=== PATIENT | female | born 1930 | race Caucasian/White ===

== ENCOUNTER → 2016-09-28 | Outpatient (CLI) | payer MEDICARE ==
--- NOTE | 2016-09-30 09:25 | MM ---
Reason for exam: screening (asymptomatic). Last mammogram was performed 1 year and 7 months ago. History: Patient is postmenopausal. Family history of premenopausal breast cancer in maternal aunt at age 50 and breast cancer in daughter at age 52. Physical Findings: A clinical breast exam by your physician is recommended on an annual basis and results should be correlated with mammographic findings. MG 3D Screening Mammo W/Cad Bilateral CC and MLO view(s) were taken. Prior study comparison: February 25, 2015, bilateral MG screening mammo w CAD. February 06, 2014, bilateral MG screening mammo w CAD. The breast tissue is extremely dense which could obscure a lesion on mammography. No significant changes when compared with prior studies. ASSESSMENT: Benign, BI-RAD 2 RECOMMENDATION: Routine screening mammogram of both breasts in 1 year.
== END | disposition home or self-care (01) ==
LOC: RADMAMWWP 11:08
PROVIDERS: ATTEND Internal Medicine Geriatric Medicine
DX: Z12.31 Encounter for screening mammogram for malignant neoplasm of breast (principal)
CPT/HCPCS: 77063; G0202

== ENCOUNTER → 2019-01-30 | Outpatient (CLI) | payer MEDICARE ==
--- NOTE | 2019-01-30 16:55 | CT ---
EXAMINATION TYPE: CT soft tissue neck w con DATE OF EXAM: 01/30/2019 COMPARISON: HISTORY: voice hoarseness. CT DLP: 483 mGycm CONTRAST: Patient injected with 100 mL of Isovue 300. TECHNIQUE: Axial images at 3 mm thick sections. Reconstructed images in the coronal plane and sagitt al plane are reviewed. FINDINGS: Limited CT sections are obtained the lung apices. There is some mosaic pattern through the upper lung astudillo could be related to some mild edema. CT neck: The torus tubarius and fossa of Rosenmuller are normal. Wallpaper Scraper spaces are normal. Para nasal sinuses and mastoid air cells are clear. Parotid glands appear normal and symmetrical. Submandibular glands, are normal. Parapharyngeal spac es are normal. No suspicious adenopathy is evident. The hypopharynx appears within normal limits. Vocal cord level appear symmetrical. Thyroid as visualized is normal. Degenerative changes are through the cervical spine. IMPRESSIONS: 1. No suspicious acute changes CT neck. 2. Vocal cords as visualized appear symmetrical on this exam. 3. Some mild edema may be within the lung astudillo.
== END | disposition home or self-care (01) ==
LOC: RADCTMAIN 13:44
PROVIDERS: ATTEND Student in an Organized Health Care Education/Training Program
DX: J38.00 Paralysis of vocal cords and larynx, unspecified (principal)
CPT/HCPCS: 70491; Q9967

== ENCOUNTER 2020-06-18 19:09 | Inpatient (IN) | payer MEDICARE ==
[2020-06-18] MEDS ORDERED: IBUPROFEN 600 MG TAB PO STA (19:57)
[2020-06-18 20:19] LABS: Basophils % (A) 1 %; Eosinophils # (A) 0.1 k/uL (0-0.7); Eosinophils % (A) 1 %; HCT 36.4 % (34.0-46.0); HGB 12.2 gm/dL (11.4-16.0); Lymphocytes # (A) 0.3 k/uL (1.0-4.8); Lymphocytes % (A) 7 %; MCH 31.2 pg (25.0-35.0); MCHC 33.7 g/dL (31.0-37.0); MCV 92.7 fL (80.0-100.0); Mean Platelet Volume 7.4; Monocytes # (A) 0.2 k/uL (0-1.0); Monocytes % (A) 4 %; Neutrophils # (A) 3.9 k/uL (1.3-7.7); Neutrophils % (A) 84 %; Platelet Count 156 k/uL (150-450); RBC 3.92 m/uL (3.80-5.40); RDW 13.1 % (11.5-15.5); WBC 4.7 k/uL (3.8-10.6)
[2020-06-18 20:27] LABS: Albumin 4.2 g/dL (3.5-5.0); Calcium 9.7 mg/dL (8.4-10.2); Potassium 5.1 mmol/L (3.5-5.1); Total Bilirubin 0.5 mg/dL (0.2-1.3); Total Protein 6.8 g/dL (6.3-8.2)
--- NOTE | 2020-06-18 20:39 | XR ---
EXAMINATION TYPE: XR chest 2V DATE OF EXAM: 06/18/2020 COMPARISON: NONE HISTORY: Shortness of breath and fever. TECHNIQUE: Frontal and lateral views of the chest are obtained. FINDINGS: There is chronic parenchymal changes bilaterally without suspicious focal air space opacit y, pleural effusion, or pneumothorax seen. The cardiac silhouette size is enlarged. The osseous st ructures are demineralized. Dextroconvex scoliosis centered mid to lower thoracic spine. Metallic catrachito dware from total right shoulder arthroplasty noted IMPRESSION: Chronic changes and cardiomegaly without acute pulmonary process.
--- NOTE | 2020-06-18 20:48 | ED ---
SOB HPI - General Chief Complaint: Shortness of Breath Stated Complaint: SOB, fever Time Seen by Provider: 06/18/20 19:15 Source: patient Mode of arrival: ambulatory Limitations: no limitations - History of Present Illness Initial Comments: Patient is an 89-year-old female past history of A. fib, hypertension who presents to the emergency department with reported shortness of breath. Her daughter at bedside helps provide history. She states that her mother is currently on Bactrim for a UTI which has been persistent. She has been following up with Dr. Dave. Over the past several days the patient has been complaining of shortness of breath. She has had increased lower extremity edema. Normally takes 40 mg of Lasix every other day. Daughter states she's been taking it every day because of her swelling. She admits to a mild nonproductive cough. No sick contacts with similar symptoms. Denies any chest pain. Does take Eliquis for her A. fib. Denies missing any doses. No history of DVT or PE. No abdominal pain. No changes in her bowel or bladder habits. No other alleviating, precipitating or modifying factors - Related Data Home Medications Medication Instructions Recorded Confirmed Levothyroxine Sodium [Synthroid] 75 mcg PO DAILY 04/29/14 06/18/20 amLODIPine/VALSARTAN [Exforge 1 tab PO DAILY 04/29/14 06/18/20 5-320 mg Tablet] ALPRAZolam [Xanax] 0.25 mg PO BID PRN 06/18/20 06/18/20 Albuterol Sulfate [Ventolin HFA] 2 puff INHALATION RT-Q4H PRN 06/18/20 06/18/20 Apixaban [Eliquis] 2.5 mg PO BID 06/18/20 06/18/20 Furosemide [Lasix] 40 mg PO DAILY 06/18/20 06/18/20 L.acidoph,Paracasei, B.lactis 2 cap PO DAILY 06/18/20 06/18/20 [Probiotic] Meloxicam [Mobic] 7.5 mg PO BID 06/18/20 06/18/20 Metoprolol Tartrate [Lopressor] 25 mg PO BID 06/18/20 06/18/20 Multivitamins, Thera [Multivitamin 1 tab PO DAILY 06/18/20 06/18/20 (formulary)] Potassium Chloride ER [K-Dur 10] 10 meq PO DAILY 06/18/20 06/18/20 Sulfamethox-Tmp 800-160Mg [Bactrim 1 tab PO DAILY 06/18/20 06/18/20 DS 800-160 mg] Allergies Allergy/AdvReac Type Severity Reaction Status Date / Time Penicillins Allergy Rash/Hives Verified 06/18/20 23:01 Review of Systems ROS Statement: Those systems with pertinent positive or pertinent negative responses have been documented in the HPI. ROS Other: All systems not noted in ROS Statement are negative. Past Medical History Past Medical History: Hypertension, Osteoarthritis (OA), Thyroid Disorder History of Any Multi-Drug Resistant Organisms: None Reported, MRSA Date of last positivie culture/infection: 2000 MDRO Source:: knee Past Surgical History: Back Surgery, Hysterectomy, Joint Replacement Additional Past Surgical History / Comment(s): knee and hip replacements [facility] Past Psychological History: No Psychological Hx Reported Smoking Status: Never smoker Past Alcohol Use History: None Reported Past Drug Use History: None Reported General Exam Limitations: no limitations General appearance: alert, in no apparent distress Head exam: Present: atraumatic, normocephalic, normal inspection Eye exam: Present: normal appearance, PERRL, EOMI. Absent: scleral icterus, conjunctival injection, periorbital swelling ENT exam: Present: normal exam, mucous membranes moist Neck exam: Present: normal inspection. Absent: tenderness, meningismus, lymphadenopathy Respiratory exam: Present: normal lung sounds bilaterally. Absent: respiratory distress, wheezes, rales, rhonchi, stridor Cardiovascular Exam: Present: regular rate, normal rhythm, normal heart sounds. Absent: systolic murmur, diastolic murmur, rubs, gallop, clicks GI/Abdominal exam: Present: soft, normal bowel sounds. Absent: distended, tenderness, guarding, rebound, rigid Extremities exam: Present: normal inspection, full ROM, normal capillary refill. Absent: tenderness, pedal edema, joint swelling, calf tenderness Back exam: Present: normal inspection Neurological exam: Present: alert, oriented X3, CN II-XII intact Psychiatric exam: Present: normal affect, normal mood Skin exam: Present: warm, dry, intact, normal color. Absent: rash Course Vital Signs 10/06/20 10/06/20 10/06/20 19:11 19:27 19:30 Temperature 101.5 F H Pulse Rate 108 H 118 H Pulse Rate [ Pulse Oximetery ] Respiratory 18 18 Rate Blood Pressure 102/54 132/80 Blood Pressure [Left Arm Sitting] O2 Sat by Pulse 94 L 90 L 91 L Oximetry 06/18/20 06/18/20 06/18/20 20:00 20:23 20:30 Temperature Pulse Rate 96 116 H 100 Pulse Rate [ Pulse Oximetery ] Respiratory 18 18 Rate Blood Pressure 113/91 128/66 Blood Pressure [Left Arm Sitting] O2 Sat by Pulse 91 L 96 Oximetry 06/18/20 06/18/20 06/18/20 20:40 21:00 21:37 Temperature Pulse Rate 109 H 95 Pulse Rate [ Pulse Oximetery ] Respiratory 19 Rate Blood Pressure 128/66 Blood Pressure [Left Arm Sitting] O2 Sat by Pulse 96 95 Oximetry 06/18/20 06/18/20 21:59 22:51 Temperature 98.2 F 98.6 F Pulse Rate Pulse Rate [ 92 Pulse Oximetery ] Respiratory 18 Rate Blood Pressure Blood Pressure 119/72 [Left Arm Sitting] O2 Sat by Pulse 96 Oximetry Medical Decision Making - Medical Decision Making Upon arrival the patient is placed into room 25. A thorough history and physical exam was performed. She is saturating 94% on room air. She has a heart rate of 125. Temp is 101.5. I did give her dose of Motrin for fever control. 12-lead EKG was performed which demonstrates A. fib with a rapid ventricular rate. Heart races were conducted. Chest x-rays performed. Sodium 129. Creatinine 1.4. BNP is 6660. Urinalysis shows large leukocyte esterase with 51 white blood cells and rare mucous. The patient is reevaluated and her heart rate is markedly improved. I discussed the diagnosis, differential and treatment options. It recommend hospital admission for failed outpatient treatment of UTI for which the patient did agree to. She was originally started on Zosyn as Dr. Dave reported that this was one of the antibiotics that she was sensitive to. Zosyn was started however daughter does mention that the patient has a penicillin ALLERGY. This was not previously mentioned. This antibiotic is stopped and the patient was switched to meropenem as Dr. Dave reported that her urine was also sensitive to this antibiotic. Medications are ordered. Patient is currently awaiting a bed on the floor - Lab Data Result diagrams: 06/19/20 02:21 06/19/20 02:21 Lab Results 06/18/20 06/18/20 06/18/20 Range/Units 19:52 19:52 19:52 WBC 4.7 (3.8-10.6) k/uL RBC 3.92 (3.80-5.40) m/uL Hgb 12.2 (11.4-16.0) gm/dL Hct 36.4 (34.0-46.0) % MCV 92.7 (80.0-100.0) fL MCH 31.2 (25.0-35.0) pg MCHC 33.7 (31.0-37.0) g/dL RDW 13.1 (11.5-15.5) % Plt Count 156 (150-450) k/uL Neutrophils % 84 % Lymphocytes % 7 % Monocytes % 4 % Eosinophils % 1 % Basophils % 1 % Neutrophils # 3.9 (1.3-7.7) k/uL Lymphocytes # 0.3 L (1.0-4.8) k/uL Monocytes # 0.2 (0-1.0) k/uL Eosinophils # 0.1 (0-0.7) k/uL Basophils # 0.0 (0-0.2) k/uL PT 11.0 (9.0-12.0) sec INR 1.1 (<1.2) APTT 27.9 (22.0-30.0) sec Sodium 129 L (137-145) mmol/L Potassium 5.1 (3.5-5.1) mmol/L Chloride 96 L (98-107) mmol/L Carbon Dioxide 25 (22-30) mmol/L Anion Gap 8 mmol/L BUN 24 H (7-17) mg/dL Creatinine 1.41 H (0.52-1.04) mg/dL Est GFR (CKD-EPI)AfAm 38 (>60 ml/min/1.73 sqM) Est GFR (CKD-EPI)NonAf 33 (>60 ml/min/1.73 sqM) Glucose 117 H (74-99) mg/dL Plasma Lactic Acid Bg (0.7-2.0) mmol/L Calcium 9.7 (8.4-10.2) mg/dL Total Bilirubin 0.5 (0.2-1.3) mg/dL AST 63 H (14-36) U/L ALT 34 (4-34) U/L Alkaline Phosphatase 111 (38-126) U/L Troponin I (0.000-0.034) ng/mL NT-Pro-B Natriuret Pep pg/mL Total Protein 6.8 (6.3-8.2) g/dL Albumin 4.2 (3.5-5.0) g/dL Urine Color Urine Appearance (Clear) Urine pH (5.0-8.0) Ur Specific [place] (1.001-1.035) Urine Protein (Negative) Urine Glucose (UA) (Negative) Urine Ketones (Negative) Urine Blood (Negative) Urine Nitrite (Negative) Urine Bilirubin (Negative) Urine Urobilinogen (<2.0) mg/dL Ur Leukocyte Esterase (Negative) Urine RBC (0-5) /hpf Urine WBC (0-5) /hpf Ur Squamous Epith Cells (0-4) /hpf Hyaline Casts (0-2) /lpf Urine Mucus (None) /hpf 06/18/20 06/18/20 06/18/20 Range/Units 19:52 19:52 19:52 WBC (3.8-10.6) k/uL RBC (3.80-5.40) m/uL Hgb (11.4-16.0) gm/dL Hct (34.0-46.0) % MCV (80.0-100.0) fL MCH (25.0-35.0) pg MCHC (31.0-37.0) g/dL RDW (11.5-15.5) % Plt Count (150-450) k/uL Neutrophils % % Lymphocytes % % Monocytes % % Eosinophils % % Basophils % % Neutrophils # (1.3-7.7) k/uL Lymphocytes # (1.0-4.8) k/uL Monocytes # (0-1.0) k/uL Eosinophils # (0-0.7) k/uL Basophils # (0-0.2) k/uL PT (9.0-12.0) sec INR (<1.2) APTT (22.0-30.0) sec Sodium (137-145) mmol/L Potassium (3.5-5.1) mmol/L Chloride (98-107) mmol/L Carbon Dioxide (22-30) mmol/L Anion Gap mmol/L BUN (7-17) mg/dL Creatinine (0.52-1.04) mg/dL Est GFR (CKD-EPI)AfAm (>60 ml/min/1.73 sqM) Est GFR (CKD-EPI)NonAf (>60 ml/min/1.73 sqM) Glucose (74-99) mg/dL Plasma Lactic Acid Bg 0.9 (0.7-2.0) mmol/L Calcium (8.4-10.2) mg/dL Total Bilirubin (0.2-1.3) mg/dL AST (14-36) U/L ALT (4-34) U/L Alkaline Phosphatase (38-126) U/L Troponin I <0.012 (0.000-0.034) ng/mL NT-Pro-B Natriuret Pep 6660 pg/mL Total Protein (6.3-8.2) g/dL Albumin (3.5-5.0) g/dL Urine Color Urine Appearance (Clear) Urine pH (5.0-8.0) Ur Specific [place] (1.001-1.035) Urine Protein (Negative) Urine Glucose (UA) (Negative) Urine Ketones (Negative) Urine Blood (Negative) Urine Nitrite (Negative) Urine Bilirubin (Negative) Urine Urobilinogen (<2.0) mg/dL Ur Leukocyte Esterase (Negative) Urine RBC (0-5) /hpf Urine WBC (0-5) /hpf Ur Squamous Epith Cells (0-4) /hpf Hyaline Casts (0-2) /lpf Urine Mucus (None) /hpf 06/18/20 Range/Units 20:37 WBC (3.8-10.6) k/uL RBC (3.80-5.40) m/uL Hgb (11.4-16.0) gm/dL Hct (34.0-46.0) % MCV (80.0-100.0) fL MCH (25.0-35.0) pg MCHC (31.0-37.0) g/dL RDW (11.5-15.5) % Plt Count (150-450) k/uL Neutrophils % % Lymphocytes % % Monocytes % % Eosinophils % % Basophils % % Neutrophils # (1.3-7.7) k/uL Lymphocytes # (1.0-4.8) k/uL Monocytes # (0-1.0) k/uL Eosinophils # (0-0.7) k/uL Basophils # (0-0.2) k/uL PT (9.0-12.0) sec INR (<1.2) APTT (22.0-30.0) sec Sodium (137-145) mmol/L Potassium (3.5-5.1) mmol/L Chloride (98-107) mmol/L Carbon Dioxide (22-30) mmol/L Anion Gap mmol/L BUN (7-17) mg/dL Creatinine (0.52-1.04) mg/dL Est GFR (CKD-EPI)AfAm (>60 ml/min/1.73 sqM) Est GFR (CKD-EPI)NonAf (>60 ml/min/1.73 sqM) Glucose (74-99) mg/dL Plasma Lactic Acid Bg (0.7-2.0) mmol/L Calcium (8.4-10.2) mg/dL Total Bilirubin (0.2-1.3) mg/dL AST (14-36) U/L ALT (4-34) U/L Alkaline Phosphatase (38-126) U/L Troponin I (0.000-0.034) ng/mL NT-Pro-B Natriuret Pep pg/mL Total Protein (6.3-8.2) g/dL Albumin (3.5-5.0) g/dL Urine Color Light Yellow Urine Appearance Clear (Clear) Urine pH 5.5 (5.0-8.0) Ur Specific [place] 1.010 (1.001-1.035) Urine Protein Negative (Negative) Urine Glucose (UA) Negative (Negative) Urine Ketones Negative (Negative) Urine Blood Trace H (Negative) Urine Nitrite Negative (Negative) Urine Bilirubin Negative (Negative) Urine Urobilinogen <2.0 (<2.0) mg/dL Ur Leukocyte Esterase Large H (Negative) Urine RBC 2 (0-5) /hpf Urine WBC 51 H (0-5) /hpf Ur Squamous Epith Cells <1 (0-4) /hpf Hyaline Casts 1 (0-2) /lpf Urine Mucus Rare H (None) /hpf - EKG Data EKG Comments: EKG demonstrates atrial fibrillation with rapid ventricular response of 129. QRS 84. QTC of 398. No acute ST segment elevations or depressions concerning for ischemic changes Disposition Clinical Impression: Shortness of breath, Atrial fibrillation with RVR, Pyrexia, Abnormal urinalysis Disposition: ADMITTED IP TO THIS HOSP Condition: Stable Is patient prescribed a controlled substance at d/c from ED?: No Decision to Admit Reason: Admit from EC Decision Date: 06/18/20 Decision Time: 21:57
[2020-06-18 20:56] LABS: INR 1.1 (<1.2); Partial Thromboplastin Time 27.9 sec (22.0-30.0)
[2020-06-18 21:18] LABS: Appearance,Urine Clear (Clear); Bilirubin,Urine Negative (Negative); Blood,Urine Trace (Negative); Color,Urine Light Yellow; Glucose,Urine (UA) Negative (Negative); Hyaline Casts,Urine 1 /lpf (0-2); Ketones,Urine Negative (Negative); Leukocyte Esterase,Urine Large (Negative); Mucus,Urine Rare /hpf; Nitrite,Urine Negative (Negative); PH, Urine 5.5 (5.0-8.0); Protein,Urine Negative (Negative); RBC,Urine 2 /hpf (0-5); Squamous Epithelial Cell,Urine <1 /hpf (0-4); Urobilinogen,Urine <2.0 mg/dL (<2.0); WBC,Urine 51 /hpf (0-5)
[2020-06-18] MEDS ORDERED: PIPERACILLIN-TAZOBACTAM 3.375 GM in SODIUM CHLORIDE 0.9% 100 ML IVPB STA (21:56)
[2020-06-18] MEDS ORDERED: NALOXONE 0.4 MG/ML 1 ML VIAL IV PRN (21:57)
[2020-06-18] MEDS ORDERED: ACETAMINOPHEN TAB 325 MG TAB PO PRN (21:57)
[2020-06-18] MEDS ORDERED: IBUPROFEN 400 MG TAB PO PRN (21:57)
[2020-06-18] MEDS ORDERED: ALBUTEROL NEBULIZED 2.5 MG/3 ML INHALATION PRN (23:17)
[2020-06-18] MEDS: ALPRAZolam 0.25 MG TAB PO PRN (23:37)
[2020-06-18] MEDS: MEROPENEM 1 GM in SODIUM CHLORIDE 0.9% 100 ML IVPB SCH (23:41)
[2020-06-19 02:36] LABS: Basophils % (A) 1 %; Eosinophils # (A) 0.1 k/uL (0-0.7); Eosinophils % (A) 3 %; HCT 31.8 % (34.0-46.0); HGB 11.3 gm/dL (11.4-16.0); Lymphocytes # (A) 0.5 k/uL (1.0-4.8); Lymphocytes % (A) 13 %; MCH 31.9 pg (25.0-35.0); MCHC 35.4 g/dL (31.0-37.0); MCV 90.2 fL (80.0-100.0); Mean Platelet Volume 7.5; Monocytes # (A) 0.2 k/uL (0-1.0); Monocytes % (A) 4 %; Neutrophils # (A) 3.1 k/uL (1.3-7.7); Neutrophils % (A) 76 %; Platelet Count 120 k/uL (150-450); RBC 3.53 m/uL (3.80-5.40); RDW 13.5 % (11.5-15.5); WBC 4.1 k/uL (3.8-10.6)
[2020-06-19 02:45] LABS: Calcium 9.1 mg/dL (8.4-10.2); Potassium 4.8 mmol/L (3.5-5.1)
[2020-06-19] MEDS: LEVOTHYROXINE 75 MCG TAB PO SCH (04:57)
[2020-06-19] MEDS: POTASSIUM CHLORIDE ER 10 MEQ TAB.ER.PRT PO SCH (07:55)
[2020-06-19] MEDS: MULTIVITAMINS, THERA 1 EACH TAB PO SCH (08:36)
[2020-06-19] MEDS: METOPROLOL TARTRATE 50 MG TAB PO SCH ×2 (08:36→20:32)
[2020-06-19] MEDS: APIXABAN 2.5 MG TABLET PO SCH ×2 (08:36→20:32)
[2020-06-19] MEDS: FUROSEMIDE 40 MG TAB PO SCH (08:36)
[2020-06-19] MEDS ORDERED: VALSARTAN 160 MG TAB PO SCH (09:00)
[2020-06-19] MEDS ORDERED: amLODIPine 5 MG TAB PO SCH (09:00)
[2020-06-19] MEDS ORDERED: METOPROLOL TARTRATE 25 MG TAB PO SCH (09:00)
[2020-06-19] MEDS ORDERED: NON FORMULARY DRUG (L.Acidoph,Paracasei, B.Lactis [Probiotic] 1 EACH Capsule) PO SCH (09:00)
--- NOTE | 2020-06-19 10:52 | P.CRDCN ---
History of Present Illness History of present illness: HISTORY OF PRESENTING ILLNESS This is a pleasant 89-year-old female past medical history significant for chronic persistent atrial fibrillation on long-term anticoagulation, nonisc hemic cardiomyopathy, chronic systolic heart failure, hypertension, valvular heart disease and COPD. She follows in the office with Dr. Conklin. We have been asked to see in consultation for Geoffrey son with RVR. She states for the past 3 days she has been feeling increasingly short of breath with frequent palpitations. She has been communicating with her PCP regularly and he suggested taking her diuretic daily rather than every other day, however she did not notice any improvement. She is also being treated for a UTI as an outpatient on bactrim. On arrival she had a fever of 101.5, EKG revealed atrial fibrillation with heart rate of 129. She is seen and examined sitting up in the chair eating breakfast. Her heart rates remain elevated, she was not started on any medications in ER. DIAGNOSTICS EKG reveals atrial fibrillation with RVR heart rate 129. Chest xray reveals chronic changes and cardiomegaly with no acute cardiopulmonary process. Laboratory reviewed, WBC 4.1, hemoglobin 11.3, platelets 120, sodium 129, potassium 4.8, creatinine 1.36, cardiac enzymes negative 3, NT proBNP 6660. Current cardiac medications include amlodipine and valsartan 5/320 mg daily, Eliquis 2.5 mg twice a day, Lasix 40 mg daily and Lopressor 25 mg twice a day. Recent echocardiogram in the office March 2020 revealed impaired LV systolic function with ejection fraction 40%, mildly dilated right ventricle, severely dilated left atrium, moderately dilated right atrium, mild to moderate aortic regurgitation, moderate mitral regurgitation and moderate tricuspid regurgitation. REVIEW OF SYSTEMS At the time of my exam: CONSTITUTIONAL: Denies fever or chills. CARDIOVASCULAR: Denies chest pain, shortness of breath, orthopnea, PND or palpitations. RESPIRATORY: Denies cough. GASTROINTESTINAL: Denies abdominal pain, diarrhea, constipation, nausea or vomiting. MUSCULOSKELETAL: Denies myalgias. NEUROLOGIC: Denies numbness, tingling or weakness. ENDOCRINE: Denies fatigue, weight change, polydipsia or polyurina. GENITOURINARY: Denies burning, hematuria or urgency with micturation. HEMATOLOGIC: Denies history of anemia or bleeding. PHYSICAL EXAMINATION Blood pressure 125/58 heart rate 130 afebrile and maintaining oxygen saturation on nasal cannula. CONSTITUTIONAL: No apparent distress. HEENT: Head is normocephalic. Pupils are equal, round. Sclerae anicteric. Mucous membranes of the mouth are moist. No JVD. No carotid bruit. CHEST EXAMINATION: Lungs are clear to auscultation. No chest wall tenderness is noted on palpation or with deep breathing. HEART EXAMINATION: Irregular rate and rhythm. S1, S2 heard. Systolic ejection murmur at the left sternal border, no gallops or rub. ABDOMEN: Soft, nontender. Positive bowel sounds. EXTREMITIES: 2+ peripheral pulses, no lower extremity edema and no calf tenderness. NEUROLOGIC EXAMINATION: Patient is awake, alert and oriented x3. ASSESSMENT Chronic persistent atrial fibrillation with rapid ventricular rate Febrile illness Hyponatremia Non-ischemic cardiomyopathy Chronic systolic heart failure, clinically euvolemic Hypertension PLAN Increase lopressor to 50 mg BID for rate control. Continue eliquis as previously ordered. Repeat limited echo to assess LV function. Check TSH. Further recommendations to follow based on clinical course. Thank you kindly for this consultation. Nurse Practitioner note has been reviewed, I agree with a documented findings and plan of care. Patient was seen and examined. Past Medical History Past Medical History: Hypertension, Osteoarthritis (OA), Thyroid Disorder History of Any Multi-Drug Resistant Organisms: None Reported, MRSA Date of last positivie culture/infection: 2000 MDRO Source:: knee Past Surgical History: Back Surgery, Hysterectomy, Joint Replacement Additional Past Surgical History / Comment(s): knee and hip replacements [facility] Past Psychological History: No Psychological Hx Reported Smoking Status: Never smoker Past Alcohol Use History: None Reported Past Drug Use History: None Reported Medications and Allergies Home Medications Medication Instructions Recorded Confirmed Type Levothyroxine Sodium [Synthroid] 75 mcg PO DAILY 04/29/14 06/18/20 History amLODIPine/VALSARTAN [Exforge 1 tab PO DAILY 04/29/14 06/18/20 History 5-320 mg Tablet] ALPRAZolam [Xanax] 0.25 mg PO BID PRN 06/18/20 06/18/20 History Albuterol Sulfate [Ventolin HFA] 2 puff INHALATION RT-Q4H PRN 06/18/20 06/18/20 History Apixaban [Eliquis] 2.5 mg PO BID 06/18/20 06/18/20 History Furosemide [Lasix] 40 mg PO DAILY 06/18/20 06/18/20 History L.acidoph,Paracasei, B.lactis 2 cap PO DAILY 06/18/20 06/18/20 History [Probiotic] Meloxicam [Mobic] 7.5 mg PO BID 06/18/20 06/18/20 History Metoprolol Tartrate [Lopressor] 25 mg PO BID 06/18/20 06/18/20 History Multivitamins, Thera [Multivitamin 1 tab PO DAILY 06/18/20 06/18/20 History (formulary)] Potassium Chloride ER [K-Dur 10] 10 meq PO DAILY 06/18/20 06/18/20 History Sulfamethox-Tmp 800-160Mg [Bactrim 1 tab PO DAILY 06/18/20 06/18/20 History DS 800-160 mg] Allergies Allergy/AdvReac Type Severity Reaction Status Date / Time Penicillins Allergy Rash/Hives Verified 06/18/20 23:01 Physical Exam Vitals: Vital Signs Temp Pulse Pulse Resp BP BP Pulse Ox 06/19/20 04:00 98.8 F 88 18 125/68 97 06/19/20 00:00 92 18 06/18/20 22:51 98.6 F 92 18 119/72 96 06/18/20 21:59 98.2 F 06/18/20 21:37 95 06/18/20 21:00 109 H 19 128/66 95 06/18/20 20:40 96 06/18/20 20:30 100 18 128/66 96 06/18/20 20:23 116 H 06/18/20 20:00 96 18 113/91 91 L 06/18/20 19:30 118 H 18 132/80 91 L 06/18/20 19:27 90 L 06/18/20 19:11 101.5 F H 108 H 18 102/54 94 L Intake and Output 06/18/20 06/19/20 06/19/20 22:59 06:59 14:59 Other: Voiding Method Toilet # Voids 1 Weight 72.575 kg 74 kg Results 06/19/20 02:21 06/19/20 02:21 Cardiac Enzymes 06/18/20 06/18/20 06/18/20 Range/Units 19:52 19:52 23:25 AST 63 H (14-36) U/L Troponin I <0.012 <0.012 (0.000-0.034) ng/mL 06/19/20 Range/Units 02:21 AST (14-36) U/L Troponin I <0.012 (0.000-0.034) ng/mL Coagulation 06/18/20 Range/Units 19:52 PT 11.0 (9.0-12.0) sec APTT 27.9 (22.0-30.0) sec CBC 06/18/20 06/19/20 Range/Units 19:52 02:21 WBC 4.7 4.1 (3.8-10.6) k/uL RBC 3.92 3.53 L (3.80-5.40) m/uL Hgb 12.2 11.3 L (11.4-16.0) gm/dL Hct 36.4 31.8 L (34.0-46.0) % Plt Count 156 120 L (150-450) k/uL Comprehensive Metabolic Panel 06/18/20 06/19/20 Range/Units 19:52 02:21 Sodium 129 L 129 L (137-145) mmol/L Potassium 5.1 4.8 (3.5-5.1) mmol/L Chloride 96 L 99 (98-107) mmol/L Carbon Dioxide 25 25 (22-30) mmol/L BUN 24 H 24 H (7-17) mg/dL Creatinine 1.41 H 1.36 H (0.52-1.04) mg/dL Glucose 117 H 89 (74-99) mg/dL Calcium 9.7 9.1 (8.4-10.2) mg/dL AST 63 H (14-36) U/L ALT 34 (4-34) U/L Alkaline Phosphatase 111 (38-126) U/L Total Protein 6.8 (6.3-8.2) g/dL Albumin 4.2 (3.5-5.0) g/dL Current Medications Generic Name Dose Route Start Last Admin Trade Name Freq PRN Reason Stop Dose Admin Acetaminophen 650 mg 06/18/20 21:57 Acetaminophen Tab 325 Mg Tab PO Q6HR PRN Mild Pain or Fever > 100.5 Albuterol Sulfate 2.5 mg 06/18/20 23:17 Albuterol Nebulized 2.5 Mg/3 Ml INHALATION RT-Q4H PRN Shortness Of Breath Alprazolam 0.25 mg 06/18/20 23:17 06/18/20 23:37 Alprazolam 0.25 Mg Tab PO 0.25 mg BID PRN Administration ANXIETY OR SLEEP Amlodipine Besylate 5 mg 06/19/20 09:00 Amlodipine 5 Mg Tab PO DAILY [facility] Apixaban 2.5 mg 06/19/20 09:00 Apixaban 2.5 Mg Tablet PO BID [facility] Furosemide 40 mg 06/19/20 09:00 Furosemide 40 Mg Tab PO DAILY [facility] Meropenem 1 gm/ Sodium 100 mls @ 33.3 mls/hr 06/18/20 23:15 06/18/20 23:41 Chloride IVPB 33.3 mls/hr Q12H CAR Administration Protocol Ibuprofen 400 mg 06/18/20 21:57 Ibuprofen 400 Mg Tab PO Q6HR PRN Mild Pain or Fever > 100.5 Levothyroxine Sodium 75 mcg 06/19/20 06:30 06/19/20 04:57 Levothyroxine 75 Mcg Tab PO 75 mcg DAILY@0630 CAR Administration Metoprolol Tartrate 25 mg 06/19/20 09:00 Metoprolol Tartrate 25 Mg Tab PO BID [facility] Multivitamins 1 each 06/19/20 09:00 Multivitamins, Thera 1 Each Tab PO DAILY [facility] Naloxone HCl 0.2 mg 06/18/20 21:57 Naloxone 0.4 Mg/Ml 1 Ml Vial IV Q2M PRN Opioid Reversal Potassium Chloride 10 meq 06/19/20 09:00 06/19/20 07:55 Potassium Chloride Er 10 Meq Tab.Er.Prt PO Not Given DAILY [facility] Valsartan 320 mg 06/19/20 09:00 Valsartan 160 Mg Tab PO DAILY [facility] Intake and Output 06/18/20 06/19/20 06/19/20 22:59 06:59 14:59 Other: Voiding Method Toilet # Voids 1 Weight 72.575 kg 74 kg 06/19/20 02:21 06/19/20 02:21
--- NOTE | 2020-06-19 11:40 | P.HPIM ---
History of Present Illness H&P Date: 06/19/20 Chief Complaint: Afib rvr HISTORY OF PRESENT ILLNESS This is an 89-year-old female patient of Dr. Dave with past medical history of hypertension, hypothyroidism, generalized osteoarthritis, Parkinson's. Patient was seen in the office last week for urinary tract infection and placed on Bactrim but she was unable to tolerate twice daily d osing and decrease it to once daily. Yesterday she was in the [facility]. for recheck and repeat urinalysis was again positive for UTI. Patient is also had some nausea and decreased appetite. She denies having any chest pain. Patient states she has had some mild lower extremity edema. Patient states that she has been taking Lasix and Aldactone as ordered at home. Patient was unfortunately found to be in atrial fibrillation with RVR and was sent into the hospital for evaluation. EKG reveals atrial fibrillation with RVR heart rate 129. Chest xray reveals chronic changes and cardiomegaly with no acute cardiopulmonary process. WBC 4.1, hemoglobin 11.3, platelets 120, sodium 129, potassium 4.8, creatinine 1.36, cardiac enzymes negative 3, NT proBNP 6660. Patient was admitted to the cardiac stepdown unit, cardiology consult obtained. Recent echocardiogram in the cardiology office March 2020 revealed impaired LV systolic function with ejection fraction 40%, mildly dilated right ventricle, severely dilated left atrium, moderately dilated right atrium, mild to moderate aortic regurgitation, moderate mitral regurgitation and moderate tricuspid regurgitation. Patient states that her breathing is better today with oxygen. She remains in atrial fibrillation 120 bpm. REVIEW OF SYSTEMS Constitutional: No fever, no chills, no night sweats. No weight change. No wea kness, fatigue or lethargy. No daytime sleepiness. EENT: No headache. No blurred vision or double vision, no loss of vision. No loss of Hearing, no ringing in the ears, no dizziness. No nasal drainage or congestion. No epistaxis. No sore throat. Lungs: Reports shortness of breath, Reportscough, no sputum production. No wheezing. Cardiovascular: No chest pain, Reports lower extremity edema. Reports palpitations. No paroxysmal nocturnal dyspnea. Reports orthopnea. No lightheadedness or dizziness. No syncopal episodes. Abdominal: No abdominal pain. No nausea, vomiting. No diarrhea. No constipation. No bloody or tarry stools.. No loss of appetite. Genitourinary: No dysuria, increased frequency, urgency. No urinary retention. Musculoskeletal: No myalgias. No muscle weakness, no gait dysfunction, no frequent falls. No back pain. No neck pain. Integumentary: No wounds, no lesions. No rash or pruritus. No unusual bruising. No change in hair or nails. Neurologic: No aphasia. No facial droop. No change in mentation. No head injury. No headache. No paralysis. No paresthesia. Psychiatric: No depression. No anxiety. No mood swings. Endocrine: No abnormal blood sugars. No weight change. No excessive sweating or thirst. No cold intolerance. SOCIAL HISTORY Patient is a lifelong nonsmoker. No illicit drug use, no alcohol use, no marijuana use. Patient lives in her own home and her daughter Amy will be able to stay with her after discharge. Patient is 8 years. She previously worked in the [employer] industry. FAMILY HISTORY Father at age 94 from old age. Mother at age 70 from a probable dissected aortic aneurysm. Patient has one sister that has passed from C. difficile colitis. Patient has 1 brother alive with no major medical problems. She has 4 daughters with no major medical problems. No sons. PHYSICAL EXAMINATION Gen: This is an 89-year-old female. She is resting bed appears to be comfortable and in no acute distress. HEENT: Head is atraumatic, normocephalic. Pupils equal, round. Sclerae is anicteric. NECK: Supple. No JVD. No lymphadenopathy. No thyromegaly. LUNGS: Clear to auscultation. No wheezes or rhonchi. No intercostal retractions. HEART: Irregular rate and rhythm. Systolic ejection murmur at the left sternal border. ABDOMEN: Soft. Bowel sounds are present. No masses. No tenderness. EXTREMITIES: trace pedal edema. No calf tenderness. NEUROLOGICAL: Patient is awake, alert and oriented x3. Cranial nerves 2 through 12 are grossly intact. ASSESSMENT AND PLAN 1. Atrial fibrillation with RVR, chronic persistent atrial fibrillation. Patient placed in the cardiac stepdown unit, cardiology consult. Metoprolol was increased to 50 mg twice daily, continue eliquis 2.5 mg twice daily. 2. Urinary tract infection. Patient is currently on meropenem which will be transitioned to ceftriaxone. Note the patient does have ALLERGY to penicillin. Probiotic added. 3. Acute kidney injury, baseline unknown. Repeat electrolytes and renal function in the morning. 4. Hyponatremia. Recheck electrolytes in the morning. 5. Hypothyroidism. Continue levothyroxine 75 g daily, TSH and free T4. 6. Hypertension. Continue Exforge 5/320 mg daily, Lopressor, Lasix. 7. Parkinsonism. 8. Nonischemic cardiomyopathy with chronic systolic heart failure. Continue Lasix at home dose 40 mg daily. 9. DVT prophylaxis. Eliquis. 10. GI prophylaxis. Protonix. Patient will be admitted to the hospital for a minimum of 2 night stay. Discharge plan: To be determined, most likely return home with family support. Impression and plan of care have been directed as dictated by the signing physician. Cecy Hill nurse practitioner acting as scribe for signing physician. Past Medical History Past Medical History: Hypertension, Osteoarthritis (OA), Thyroid Disorder History of Any Multi-Drug Resistant Organisms: None Reported, MRSA Date of last positivie culture/infection: 2000 MDRO Source:: knee Past Surgical History: Back Surgery, Hysterectomy, Joint Replacement Additional Past Surgical History / Comment(s): knee and hip replacements [facility] Past Psychological History: No Psychological Hx Reported Smoking Status: Never smoker Past Alcohol Use History: None Reported Past Drug Use History: None Reported Medications and Allergies Home Medications Medication Instructions Recorded Confirmed Type Levothyroxine Sodium [Synthroid] 75 mcg PO DAILY 04/29/14 06/18/20 History amLODIPine/VALSARTAN [Exforge 1 tab PO DAILY 04/29/14 06/18/20 History 5-320 mg Tablet] ALPRAZolam [Xanax] 0.25 mg PO BID PRN 06/18/20 06/18/20 History Albuterol Sulfate [Ventolin HFA] 2 puff INHALATION RT-Q4H PRN 06/18/20 06/18/20 History Apixaban [Eliquis] 2.5 mg PO BID 06/18/20 06/18/20 History Furosemide [Lasix] 40 mg PO DAILY 06/18/20 06/18/20 History L.acidoph,Paracasei, B.lactis 2 cap PO DAILY 06/18/20 06/18/20 History [Probiotic] Meloxicam [Mobic] 7.5 mg PO BID 06/18/20 06/18/20 History Metoprolol Tartrate [Lopressor] 25 mg PO BID 06/18/20 06/18/20 History Multivitamins, Thera [Multivitamin 1 tab PO DAILY 06/18/20 06/18/20 History (formulary)] Potassium Chloride ER [K-Dur 10] 10 meq PO DAILY 06/18/20 06/18/20 History Sulfamethox-Tmp 800-160Mg [Bactrim 1 tab PO DAILY 06/18/20 06/18/20 History DS 800-160 mg] Allergies Allergy/AdvReac Type Severity Reaction Status Date / Time Penicillins Allergy Rash/Hives Verified 06/18/20 23:01 Physical Exam Vitals: Vital Signs Temp Pulse Pulse Resp BP BP Pulse Ox 06/19/20 04:00 98.8 F 88 18 125/68 97 06/19/20 00:00 92 18 06/18/20 22:51 98.6 F 92 18 119/72 96 06/18/20 21:59 98.2 F 06/18/20 21:37 95 06/18/20 21:00 109 H 19 128/66 95 06/18/20 20:40 96 06/18/20 20:30 100 18 128/66 96 06/18/20 20:23 116 H 06/18/20 20:00 96 18 113/91 91 L 06/18/20 19:30 118 H 18 132/80 91 L 06/18/20 19:27 90 L 06/18/20 19:11 101.5 F H 108 H 18 102/54 94 L Intake and Output 06/18/20 06/19/20 06/19/20 22:59 06:59 14:59 Other: Voiding Method Toilet # Voids 1 Weight 72.575 kg 74 kg Results CBC & Chem 7: 06/19/20 02:21 06/19/20 02:21 Labs: Abnormal Lab Results - Last 24 Hours (Table) 06/18/20 06/18/20 06/18/20 Range/Units 19:52 19:52 20:37 RBC (3.80-5.40) m/uL Hgb (11.4-16.0) gm/dL Hct (34.0-46.0) % Plt Count (150-450) k/uL Lymphocytes # 0.3 L (1.0-4.8) k/uL Sodium 129 L (137-145) mmol/L Chloride 96 L (98-107) mmol/L BUN 24 H (7-17) mg/dL Creatinine 1.41 H (0.52-1.04) mg/dL Glucose 117 H (74-99) mg/dL AST 63 H (14-36) U/L Urine Blood Trace H (Negative) Ur Leukocyte Esterase Large H (Negative) Urine WBC 51 H (0-5) /hpf Urine Mucus Rare H (None) /hpf 06/19/20 06/19/20 Range/Units 02:21 02:21 RBC 3.53 L (3.80-5.40) m/uL Hgb 11.3 L (11.4-16.0) gm/dL Hct 31.8 L (34.0-46.0) % Plt Count 120 L (150-450) k/uL Lymphocytes # 0.5 L (1.0-4.8) k/uL Sodium 129 L (137-145) mmol/L Chloride (98-107) mmol/L BUN 24 H (7-17) mg/dL Creatinine 1.36 H (0.52-1.04) mg/dL Glucose (74-99) mg/dL AST (14-36) U/L Urine Blood (Negative) Ur Leukocyte Esterase (Negative) Urine WBC (0-5) /hpf Urine Mucus (None) /hpf Microbiology - Last 24 Hours (Table) 06/18/20 20:37 Urine Culture - Preliminary Urine,Voided Thrombosis Risk Factor Assmnt - Choose All That Apply Each Factor Represents 1 point: Heart failure (<1month), Obesity (BMI >25), Swollen legs (current) Each Risk Factor Represents 3 Points: Age 75 years or older Thrombosis Risk Factor Assessment Total Risk Factor Score: 6 Thrombosis Risk Factor Assessment Level: High Risk
[2020-06-19] MEDS: LACTOBACILLUS ACIDOPH & BULGAR 1 EACH PACKET PO SCH ×2 (11:54→20:32)
--- NOTE | 2020-06-19 19:00 | ECHOF ---
Referral Reason:lv function MEASUREMENTS -------- HEIGHT: 152.4 cm WEIGHT: 73.9 kg BP: IVSd: 1.3 cm (0.6 - 1.1) LVIDd: 4.8 cm (3.9 - 5.3) LVPWd: 1.3 cm (0.6 - 1.1) IVSs: 1.5 cm LVIDs: 3.6 cm LVPWs: 1.5 cm FINDINGS -------- Atrial fibrillation. Limited Study for LV function The left ventricular size is normal. There is mild concentric left ventricular hypertrophy. Overa ll left ventricular systolic function is mildly impaired with, an EF between 45 - 50 %. There is no pericardial effusion. CONCLUSIONS -------- 1. Limited Study for LV function 2. The left ventricular size is normal. 3. There is mild concentric left ventricular hypertrophy. 4. Overall left ventricular systolic function is mildly impaired with, an EF between 45 - 50 %. 5. There is no pericardial effusion. DISPOSITION CLERK: Sonia Raya RDCS
[2020-06-19] MEDS: ALPRAZolam 0.25 MG TAB PO PRN (20:32)
[2020-06-20] MEDS: LEVOTHYROXINE 75 MCG TAB PO SCH (06:30)
[2020-06-20] MEDS: PANTOPRAZOLE 40 MG TABLET PO SCH (06:30)
[2020-06-20] MEDS: APIXABAN 2.5 MG TABLET PO SCH ×2 (09:09→22:03)
[2020-06-20] MEDS: MULTIVITAMINS, THERA 1 EACH TAB PO SCH (09:09)
[2020-06-20] MEDS: FUROSEMIDE 40 MG TAB PO SCH (09:09)
[2020-06-20] MEDS: EXFORGE PO SCH (09:10)
[2020-06-20] MEDS: LACTOBACILLUS ACIDOPH & BULGAR 1 EACH PACKET PO SCH ×2 (09:10→22:03)
[2020-06-20] MEDS: METOPROLOL TARTRATE 50 MG TAB PO SCH ×2 (09:10→22:03)
[2020-06-20] MEDS: POTASSIUM CHLORIDE ER 10 MEQ TAB.ER.PRT PO SCH (09:15)
[2020-06-20] MEDS: MEROPENEM 1 GM in SODIUM CHLORIDE 0.9% 100 ML IVPB SCH (09:38)
--- NOTE | 2020-06-20 09:50 | P.PN ---
Subjective Progress Note Date: 06/20/20 HISTORY OF PRESENT ILLNESS This is an 89-year-old female patient of Dr. Dave with past medical history of hypertension, hypothyroidism, generalized osteoarthritis, Parki nson's. Patient was seen in the office last week for urinary tract infection and placed on Bactrim but she was unable to tolerate twice daily dosing and decrease it to once daily. Yesterday she was in the Ofc. for recheck and repeat urinalysis was again positive for UTI. Patient is also had some nausea and decreased appetite. She denies having any chest pain. Patient states she has had some mild lower extremity edema. Patient states that she has been taking Lasix and Aldactone as ordered at home. Patient was unfortunately found to be in atrial fibrillation with RVR and was sent into the hospital for evaluation. EKG reveals atrial fibrillation with RVR heart rate 129. Chest xray reveals chronic changes and cardiomegaly with no acute cardiopulmonary process. WBC 4.1, hemoglobin 11.3, platelets 120, sodium 129, potassium 4.8, creatinine 1.36, cardiac enzymes negative 3, NT proBNP 6660. Patient was admitted to the cardiac stepdown unit, cardiology consult obtained. Recent echocardiogram in the cardiology office March 2020 revealed impaired LV systolic function with ejection fraction 40%, mildly dilated right ventricle, severely dilated left atrium, moderately dilated right atrium, mild to moderate aortic regurgitation, moderate mitral regurgitation and moderate tricuspid regurgitation. Patient states that her breathing is better today with oxygen. She remains in atrial fibrillation 120 bpm. 06/20: Patient states that she is feeling quite a bit better today. She denies having any palpitations. Heart rate is better controlled at 9204. Patient remains in atrial fibrillation. Patient has been afebrile, blood pressure 127/67, pulse ox 93% on room air. Blood cultures showing no growth at 24 hours, urine cultures finalize with no growth, Covid 19 testing is pending. PT will be added and plan for discharge home tomorrow. REVIEW OF SYSTEMS Constitutional: No fever, no chills, no night sweats. No weight change. No weakness, fatigue or lethargy. No daytime sleepiness. EENT: No headache. No blurred vision or double vision, no loss of vision. No loss of Hearing, no ringing in the ears, no dizziness. No nasal drainage or congestion. No epistaxis. No sore throat. Lungs: Reports shortness of breath, Reportscough, no sputum production. No wheezing. Cardiovascular: No chest pain, Reports lower extremity edema. Denies palpitations. No paroxysmal nocturnal dyspnea. Reports orthopnea. No lightheadedness or dizziness. No syncopal episodes. Abdominal: No abdominal pain. No nausea, vomiting. No diarrhea. No constipation. No bloody or tarry stools.. No loss of appetite. Genitourinary: No dysuria, increased frequency, urgency. No urinary retention. Musculoskeletal: No myalgias. No muscle weakness, no gait dysfunction, no frequent falls. No back pain. No neck pain. Integumentary: No wounds, no lesions. No rash or pruritus. No unusual bruising. No change in hair or nails. Neurologic: No aphasia. No facial droop. No change in mentation. No head injury. No headache. No paralysis. No paresthesia. Psychiatric: No depression. No anxiety. No mood swings. Endocrine: No abnormal blood sugars. No weight change. No excessive sweating or thirst. No cold intolerance. PHYSICAL EXAMINATION Gen: This is an 89-year-old female. She is resting bed appears to be comfortable and in no acute distress. HEENT: Head is atraumatic, normocephalic. Pupils equal, round. Sclerae is anic teric. NECK: Supple. No JVD. No lymphadenopathy. No thyromegaly. LUNGS: Clear to auscultation. No wheezes or rhonchi. No intercostal retractions. HEART: Irregular rate and rhythm. Systolic ejection murmur at the left sternal border. ABDOMEN: Soft. Bowel sounds are present. No masses. No tenderness. EXTREMITIES: no pedal edema. No calf tenderness. NEUROLOGICAL: Patient is awake, alert and oriented x3. Cranial nerves 2 through 12 are grossly intact. ASSESSMENT AND PLAN 1. Atrial fibrillation with RVR, chronic persistent atrial fibrillation. Continue 50 mg twice daily, continue eliquis 2.5 mg twice daily. Cardiology consult appreciated. 2. Urinary tract infection. Continue ceftriaxone. Probiotic added. 3. Acute kidney injury, baseline unknown. Repeat electrolytes and renal function in the morning. 4. Hyponatremia. Recheck electrolytes in the morning. 5. Hypothyroidism. Continue levothyroxine 75 g daily, TSH and free T4. 6. Hypertension. Continue Exforge 5/320 mg daily, Lopressor, Lasix. 7. Parkinsonism. 8. Nonischemic cardiomyopathy with chronic systolic heart failure. Continue Lasix at home dose 40 mg daily. 9. DVT prophylaxis. Eliquis. 10. GI prophylaxis. Protonix. Discharge plan: Most likely home with family support tomorrow. Impression and plan of care have been directed as dictated by the signing physician. Ccey Hill nurse practitioner acting as scribe for signing physician. Objective - Vital Signs Vital signs: Vital Signs Temp 98.5 F 06/20/20 08:15 Pulse 104 H 06/20/20 08:15 Resp 18 06/20/20 08:15 BP 127/67 06/20/20 08:15 Pulse Ox 93 L 06/20/20 08:15 Intake & Output 06/19/20 06/20/20 06/20/20 18:59 06:59 18:59 Intake Total 810 Output Total 550 500 Balance 260 -500 Weight 73.3 kg Intake: Intake, IV Titration 50 Amount cefTRIAXone 1 gm In 50 Sodium Chloride 0.9% 50 ml @ 100 mls/hr IVPB Q24HR [facility] Rx#:[id number] Oral 760 Output: Urine 550 500 Other: Voiding Method Toilet Toilet # Voids 1 2 # Bowel Movements 1 - Labs CBC & Chem 7: 06/19/20 02:21 06/19/20 02:21 Labs: Microbiology - Last 24 Hours (Table) 06/18/20 20:37 Urine Culture - Final Urine,Voided 06/18/20 19:52 Blood Culture - Preliminary Blood No Growth after 24 hours
--- NOTE | 2020-06-20 14:27 | P.PN ---
Subjective HISTORY OF PRESENTING ILLNESS This is a pleasant 89-year-old female past medical history significant for chronic persistent atrial fibrillation on long-term anticoagulation, nonischemic cardiomyopathy, chronic systolic heart failure, hypertension, valvular heart disease and COPD. She follows in the office with Dr. Conklin. She is seen and examined sitting up in the chair eating. She states overall she is feeling better since coming to the hospital. She is no longer feeling palpitations and feels like her strength is increasing. Blood pressure 143/66 heart rate 88 afebrile and maintaining oxygen saturation on room air. PHYSICAL EXAMINATION CONSTITUTIONAL: No apparent distress. HEENT: Head is normocephalic. Pupils are equal, round. Sclerae anicteric. Mucous membranes of the mouth are moist. No JVD. No carotid bruit. CHEST EXAMINATION: Faint expiratory wheeze noted. No chest wall tenderness is noted on palpation or with deep breathing. HEART EXAMINATION: Irregular rate and rhythm. S1, S2 heard. Systolic ejection murmur at the left sternal border, no gallops or rub. EXTREMITIES: 2+ peripheral pulses, no lower extremity edema and no calf tenderness. ASSESSMENT Chronic persistent atrial fibrillation with rapid ventricular rate Febrile illness Hyponatremia Non-ischemic cardiomyopathy Chronic systolic heart failure, clinically euvolemic Hypertension PLAN Continue current medical regimen. Heart rates are much better controlled on current dose of lopressor. Echo shows no significant changes in LV function. Recommend follow up with Dr. Conklin upon discharge. We will follow along as needed. Nurse Practitioner note has been reviewed, I agree with a documented findings and plan of care. Patient was seen and examined. Objective - Vital Signs Vital signs: Vital Signs Temp 98.5 F 06/20/20 08:15 Pulse 104 H 06/20/20 08:50 Resp 18 06/20/20 08:50 BP 127/67 06/20/20 08:15 Pulse Ox 93 L 06/20/20 08:15 Intake & Output 06/19/20 06/20/20 06/20/20 18:59 06:59 18:59 Intake Total 810 360 Output Total 550 500 200 Balance 260 -500 160 Weight 73.3 kg Intake: Intake, IV Titration 50 Amount cefTRIAXone 1 gm In 50 Sodium Chloride 0.9% 50 ml @ 100 mls/hr IVPB Q24HR [facility] Rx#:[id number] Oral 760 360 Output: Urine 550 500 200 Other: Voiding Method Toilet Toilet Toilet # Voids 1 2 1 # Bowel Movements 1 - Labs CBC & Chem 7: 06/19/20 02:21 06/19/20 02:21 Labs: Microbiology - Last 24 Hours (Table) 06/18/20 20:37 Urine Culture - Final Urine,Voided 06/18/20 19:52 Blood Culture - Preliminary Blood No Growth after 24 hours
[2020-06-21] MEDS: ALPRAZolam 0.25 MG TAB PO PRN (01:08)
[2020-06-21] MEDS: LEVOTHYROXINE 75 MCG TAB PO SCH (06:23)
[2020-06-21] MEDS: PANTOPRAZOLE 40 MG TABLET PO SCH (06:23)
[2020-06-21 07:42] VITALS: BP 113/60; PULSE 102; TEMP 98.1
[2020-06-21 08:19] LABS: Calcium 9.5 mg/dL (8.4-10.2); Potassium 5.7 mmol/L (3.5-5.1)
[2020-06-21] MEDS: MULTIVITAMINS, THERA 1 EACH TAB PO SCH (09:39)
[2020-06-21] MEDS: FUROSEMIDE 40 MG TAB PO SCH (09:39)
[2020-06-21] MEDS: METOPROLOL TARTRATE 50 MG TAB PO SCH (09:39)
[2020-06-21] MEDS: APIXABAN 2.5 MG TABLET PO SCH (09:39)
[2020-06-21] MEDS: LACTOBACILLUS ACIDOPH & BULGAR 1 EACH PACKET PO SCH (09:39)
[2020-06-21] MEDS: EXFORGE PO SCH (09:40)
--- NOTE | 2020-06-21 12:23 | P.DS ---
Providers Date of admission: 06/20/20 09:40 Expected date of discharge: 06/21/20 Attending physician: Galileo Dave Primary care physician: [facility] Course: HISTORY OF PRESENT ILLNESS This is an 89-year-old female patient of Dr. Dave with past medical history of hypertension, hypothyroidism, generalized osteoarthritis, Parkinson's. Patient was seen in the office last week for urinary tract i nfection and placed on Bactrim but she was unable to tolerate twice daily dosing and decrease it to once daily. Yesterday she was in the Ofc. for recheck and repeat urinalysis was again positive for UTI. Patient is also had some nausea and decreased appetite. She denies having any chest pain. Patient states she has had some mild lower extremity edema. Patient states that she has been taking Lasix and Aldactone as ordered at home. Patient was unfortunately found to be in atrial fibrillation with RVR and was sent into the hospital for evaluation. EKG reveals atrial fibrillation with RVR heart rate 129. Chest xray reveals chronic changes and cardiomegaly with no acute cardiopulmonary process. WBC 4.1, hemoglobin 11.3, platelets 120, sodium 129, potassium 4.8, creatinine 1.36, cardiac enzymes negative 3, NT proBNP 6660. Patient was admitted to the cardiac stepdown unit, cardiology consult obtained. Recent echocardiogram in the cardiology office March 2020 revealed impaired LV systolic function with ejection fraction 40%, mildly dilated right ventricle, severely dilated left atrium, moderately dilated right atrium, mild to moderate aortic regurgitation, moderate mitral regurgitation and moderate tricuspid regurgitation. Patient states that her breathing is better today with oxygen. She remains in atrial fibrillation 120 bpm. 06/20: Patient states that she is feeling quite a bit better today. She denies having any palpitations. Heart rate is better controlled at 9204. Patient remains in atrial fibrillation. Patient has been afebrile, blood pressure 127/67, pulse ox 93% on room air. Blood cultures showing no growth at 24 hours, urine cultures finalize with no growth, Covid 19 testing is pending. PT will be added and plan for discharge home tomorrow. 06/21: Covid testing negative. Repeat blood work reveals sodium 132, potassium 5.7, chloride 98, CO2 26, BUN 29 and creatinine 1.32. Potassium was rechecked and came back at 4.9. Patient has remained in atrial fibrillation with controlled rate. Cardiology has signed off. Patient will be discharged home today in stable condition. ASSESSMENT AND PLAN 1. Atrial fibrillation with RVR, chronic persistent atrial fibrillation. 2. Urinary tract infection. 3. Acute kidney injury, baseline unknown. 4. Hyponatremia. 5. Hypothyroidism. 6. Hypertension. 7. Parkinsonism. 8. Nonischemic cardiomyopathy with chronic systolic heart failure. Discharge plan: home with family support Impression and plan of care have been directed as dictated by the signing physician. Cecy Hill nurse practitioner acting as scribe for signing physician. Patient Condition at Discharge: Good Plan - Discharge Summary Discharge Rx Participant: No New Discharge Prescriptions: New Metoprolol Tartrate [Lopressor] 50 mg PO BID #60 tab Continue Levothyroxine Sodium [Synthroid] 75 mcg PO DAILY amLODIPine/VALSARTAN [Exforge 5-320 MG] 1 tab PO DAILY Albuterol Sulfate [Ventolin HFA] 2 puff INHALATION RT-Q4H PRN PRN Reason: Shortness Of Breath ALPRAZolam [Xanax] 0.25 mg PO BID PRN PRN Reason: ANXIETY OR SLEEP Apixaban [Eliquis] 2.5 mg PO BID Furosemide [Lasix] 40 mg PO DAILY L.acidoph,Paracasei, B.lactis [Probiotic] 2 cap PO DAILY Meloxicam [Mobic] 7.5 mg PO BID Multivitamins, Thera [Multivitamin (formulary)] 1 tab PO DAILY Potassium Chloride ER [K-Dur 10] 10 meq PO DAILY Discontinued Metoprolol Tartrate [Lopressor] 25 mg PO BID Sulfamethox-Tmp 800-160Mg [Bactrim DS 800-160 mg] 1 tab PO DAILY Discharge Medication List Levothyroxine Sodium [Synthroid] 75 mcg PO DAILY 04/29/14 [History] amLODIPine/VALSARTAN [Exforge 5-320 MG] 1 tab PO DAILY 04/29/14 [History] ALPRAZolam [Xanax] 0.25 mg PO BID PRN 06/18/20 [History] Albuterol Sulfate [Ventolin HFA] 2 puff INHALATION RT-Q4H PRN 06/18/20 [History] Apixaban [Eliquis] 2.5 mg PO BID 06/18/20 [History] Furosemide [Lasix] 40 mg PO DAILY 06/18/20 [History] L.acidoph,Paracasei, B.lactis [Probiotic] 2 cap PO DAILY 06/18/20 [History] Meloxicam [Mobic] 7.5 mg PO BID 06/18/20 [History] Multivitamins, Thera [Multivitamin (formulary)] 1 tab PO DAILY 06/18/20 [History] Potassium Chloride ER [K-Dur 10] 10 meq PO DAILY 06/18/20 [History] Metoprolol Tartrate [Lopressor] 50 mg PO BID #60 tab 06/21/20 [Rx] Follow up Appointment(s)/Referral(s): Primo Conklin MD [STAFF PHYSICIAN] - 07/03/20 1:45 pm (Wednesday) Galileo Dave MD [Primary Care Provider] - 06/26/20 1:45 pm (Wednesday with THERAPIST [employer]CCUP[facility]) Discharge Disposition: HOME SELF-CARE
[2020-06-21 13:06] VITALS: RESP 20
== END 2020-06-21 11:15 | disposition home or self-care (01) | DRG 309 ==
LOC: EC 19:09 → 3SCARD 21:59 → OBSVTOIN 06-20 09:40
PROVIDERS: ADMIT Internal Medicine Geriatric Medicine; ATTEND Internal Medicine Geriatric Medicine
DX: I48.19 Other persistent atrial fibrillation (principal); I50.22 Chronic systolic (congestive) heart failure; N39.0 Urinary tract infection, site not specified; N17.9 Acute kidney failure, unspecified; E87.1 Hypo-osmolality and hyponatremia; Z20.828 Contact with and (suspected) exposure to other viral communicable diseases; I42.8 Other cardiomyopathies; G20 Parkinson's disease; I11.0 Hypertensive heart disease with heart failure; J44.9 Chronic obstructive pulmonary disease, unspecified; E03.9 Hypothyroidism, unspecified; I08.3 Combined rheumatic disorders of mitral, aortic and tricuspid valves; M15.9 Polyosteoarthritis, unspecified; E66.9 Obesity, unspecified; Z68.31 Body mass index [BMI] 31.0-31.9, adult; Z79.890 Hormone replacement therapy; Z79.899 Other long term (current) drug therapy; Z79.01 Long term (current) use of anticoagulants; Z79.1 Long term (current) use of non-steroidal anti-inflammatories (NSAID); Z96.659 Presence of unspecified artificial knee joint; Z96.649 Presence of unspecified artificial hip joint; Z90.710 Acquired absence of both cervix and uterus; Z98.890 Other specified postprocedural states; Z86.14 Personal history of Methicillin resistant Staphylococcus aureus infection; Z88.0 Allergy status to penicillin; Z82.49 Family history of ischemic heart disease and other diseases of the circulatory system
CPT/HCPCS: 36415; 71046; 80048; 80053; 81001; 83605; 83880; 84132; 84443; 84484; 85025; 85610; 85730; 87040; 87086; 93005; 93308; 96374; 99285